=== PATIENT | male | born 1960 | race Caucasian/White ===

== ENCOUNTER → 2019-12-08 | Outpatient (CLI) | payer BC, OTHER, SELFPAY | END | disposition home or self-care (01) | LOC: MTDU 12-13 14:49 | PROVIDERS: PCP Internal Medicine; Visit Provider Internal Medicine | DX: Z20.828 Contact with and (suspected) exposure to other viral communicable diseases (principal) | CPT/HCPCS: 87635; C9803; U0003 ==

== ENCOUNTER 2020-01-11 14:36 | Emergency (ER) | payer BC, OTHER, SELFPAY ==
[2020-01-11 14:37] VITALS: BP 139/89; PULSE 87; RESP 16; TEMP 36.2; O2SAT 97; BMI 29.2
[2020-01-11 14:41] VITALS: BP 139/89; PULSE 84; RESP 16; TEMP 36.1; O2SAT 98
--- NOTE | 2020-01-11 15:00 | EKG12_ITS ---
Test Reason : CP Blood Pressure : / mmHG Vent. Rate : 073 BPM Atrial Rate : 073 BPM P-R Int : 152 ms QRS Dur : 112 ms QT Int : 372 ms P-R-T Axes : 030 046 029 degrees QTc Int : 409 ms Normal sinus rhythm Normal ECG Confirmed by ALANNA CÁRDENAS, KHOI ([id number]), editor & co founder VIBHA FULTON ([id number]) on 01/16/2020 9:31:25 A M Referred By: ADELINE Confirmed By:DAXA MONDRAGON MD
--- NOTE | 2020-01-11 15:01 | ED.VISSUMM ---
- ER Visit Summary Date of Service: 01/11/20 Chief Complaint: Chest pain History of Present Illness: The patient is a [address] Martini. He was diagnosed with Covid 1 month ago. States that he is never fully recovered from this. He continues have mild dyspnea. However, he reports that he has chest pain that began 1 to 2 weeks ago. Is an intermittent pain that lasts hours at a time. States is worse in the evening. He describes it as a substernal pressure with radiation to his left clavicle. Reports that currently his pain is 1 out of 10 in severity and this began approximately 3 hours ago. At worst it is 5 out of 10 in severity. This is worsened by nothing including exertion, movement, or breathing. In fact, it is relieved by deep breaths. He denies any associated nausea, vomiting, or diaphoresis. Physical Examination: Vitals: Stable. Afebrile. General: Well-nourished and well-developed. Head: Normocephalic atraumatic. Neck: Supple, no lymphadenopathy. No JVD. Nontender. Cardiovascular: Regular rate and rhythm. No murmurs. Respiratory: No respiratory distress. Clear to auscultation bilaterally. Abdominal: Soft, nontender, nondistended, normal bowel sounds. No guarding, rebound, or peritoneal signs. Back: Nontender. Extremities: Nontender, no edema. Skin: Normal color, no rash. Neurologic: Alert and oriented ?3. Cranial nerves II through XII are intact. Normal strength and sensation. Psych: Normal affect. Test Results: EKG is sinus at [address] changes and artifact. CBC is normal. Chem-7 shows a chloride of 110 and glucose of 124. Troponin is negative. D-dimer is 0.54 which is negative when adjusted for age. Clinical Impression(s) from Imaging Studies Chest X-Ray 01/11/20 15:10 IMPRESSION: No acute abnormality is seen. Electronically Signed: Jason Boothe, at 15:27 EST , Service support , Emergency Department Course and Treatment: Patient was treated with aspirin. He is resting comfortably. Treatment Plan: Follow-up his primary care physician as soon as possible for further evaluation regarding his chest pain. Return to the emergency department for any worsening symptoms. Disposition: To home in improved and stable condition. Impression: 1. Atypical chest pain. 2. Heart score of 3. 3. MILAN score of 1. This note was generated with [email or web address] dictation software. It may contain incorrect words, spelling, and punctuation that were not noted in review of the chart prior to signing ED Disposition - Plan for ED Patient: Instructions: ED Chest Pain Atypical Unkn Cause Referrals: Marie Ramirez MD [Primary Care Provider] - As soon as possible
--- NOTE | 2020-01-11 15:10 | RAD_ITS ---
STUDY: X-RAY CHEST REASON FOR EXAM: Male, 59 years old. C/O CHEST PAIN, H/A, SOB INTERMITTENTLY FOR ONE WEEK. PT WAS TESTED POSITIVE FOR COVID ON 12/07/19 TECHNIQUE: Single AP portable view of the chest. COMPARISON: Comparison is made with prior study dated 11/25/2016. FINDINGS: EKG electrodes are seen. No acute abnormality is seen. There is no demonstrated pleural abnormality. Normal size heart. Normal mediastinum and sami. Normal visualized pulmonary arteries. Normal visualized aortic arch and descending thoracic aorta. Normal visualized thoracic spine. Normal visualized ribs, clavicles, and shoulders. There is no demonstrated abnormality of the visualized soft tissue structures of the upper abdomen. RAD/Chest 1 View (Portable) IMPRESSION: No acute abnormality is seen. Electronically Signed: Jason Boothe, at 15:27 EST , Service support ,
[2020-01-11 15:14] LABS: Absolute Lymphocyte Count 1.26 X10^3/uL (0.83-4.51); Absolute Neutrophil Count 3.1 X10^3/uL (2.0-7.7); Basophil# 0.02 X10^3/uL; Basophil% 0.4 % (0-1); Hematocrit 42.6 % (40-54); Hemoglobin 14.2 g/dL (13.0-16.5); Lymphocyte # 1.26 X10^3/ul (4.0); Lymphocyte % 25.3 % (19-41); Mean Corp Hgb Conc 33.3 g/dL (32-36); Mean Corpuscular Hgb 32.1 pg (27.0-32.0); Mean Corpuscular Volume 96.4 fL (80-94); Mean Platelet Vol. 10.3 fl (6.2-12.0); Monocyte# 0.41 X10^3/uL; Monocyte% 8.2 % (0-10); NRBC Flagged by Analyzer 0 % (0-5); Neutrophil # 3.09 X10^3/uL (2.7-7.7); Neutrophil % 61.9 % (47-70); Platelet Count 208 K/mm3 (150-450); RBC Distribution Width SD 42.8 fl (35.1-43.9); Red Blood Count 4.42 M/mm3 (4.6-6.2)
[2020-01-11] MEDS: 0.9% Normal Saline 1,000 ML 150 ML IV (15:29)
[2020-01-11] MEDS: Aspirin 81 MG TAB.CHEW 324 MG PO (15:29)
[2020-01-11 15:45] VITALS: BP 122/74; PULSE 65; RESP 16; O2SAT 96
[2020-01-11 15:52] LABS: Anion Gap 1 (5-15); BUN 13 mg/dL (7-18); Calcium,Total 8.9 mg/dL (8.5-10.1); Chloride 110 mmol/L (98-107); Creatinine, Serum 0.93 mg/dL (0.70-1.30); EST Glomerular Filtration Rate 88 mL/min (>60); Est Glom Filt Rate - Afr Amer 106 mL/min (>60); Estimated Creatinine Clearance 77.99 ml/min; Glucose 124 mg/dL (74-106); Potassium 3.7 mmol/L (3.5-5.1); Sodium Level 141 mmol/L (136-145)
[2020-01-11 15:54] LABS: D-Dimer Quantitative (DVT/PE) 0.54 FEU/ug/m (0.27-0.49)
[2020-01-11 16:17] VITALS: BP 124/83; BP 126/83; PULSE 60; RESP 16; O2SAT 98
== END 2020-01-11 16:27 | disposition home or self-care (01) ==
LOC: ED 15:35
PROVIDERS: Emergency Provider Emergency Medicine; PCP Internal Medicine
DX: R07.89 Other chest pain (principal)
CPT/HCPCS: 71045; 80048; 84484; 85025; 85379; 93005; 96360; 99284; J7030; A4216

== ENCOUNTER → 2020-01-30 12:24 | Outpatient (CLI) | payer BC, OTHER, SELFPAY ==
[2020-01-11 14:37] VITALS: BMI 29.2
== END ==
PROVIDERS: PCP Internal Medicine; Referring Provider Internal Medicine; Visit Provider Internal Medicine
DX: R00.2 Palpitations (principal); R07.89 Other chest pain
CPT/HCPCS: 93225; 93226

== ENCOUNTER 2020-05-08 11:27 | Outpatient (RCR) | payer BC, OTHER, SELFPAY ==
[2020-05-08] MEDS: COVID-19 VACC, MRNA(PFIZER)/PF 30 MCG/0.3 ML SYRINGE IM (10:46)
[2020-05-29] MEDS: COVID-19 VACC, MRNA(PFIZER)/PF 30 MCG/0.3 ML SYRINGE IM (10:37)
== END 2020-07-31 23:59 ==
LOC: IMMUN 11:27
PROVIDERS: PCP Internal Medicine; Visit Provider Family Medicine
DX: Z23 Encounter for immunization (principal)
CPT/HCPCS: 0001A; 0002A; 91300